=== PATIENT | male | born 1970 | race African-American/Black ===

== ENCOUNTER 2017-07-12 08:15 | Emergency (ER) | payer OTHER ==
[~2017-07-12] VITALS: Ht 185.4 cm; Wt 109.1 kg
[~2017-07-12 08:15] MED LIST: AMLO-512 PO; ASPI-1182 PO; CLON.2 PO; HYDR25TA PO; ISOS30TA6 PO; LISI-662 PO; METO50 PO
[2017-07-12 09:18] LABS: CALCIUM, TOTAL 9.2 mg/dL (8.8-10.5); CREATININE 3.88 mg/dL (0.60-1.30); POTASSIUM 4.4 mmol/L (3.5-5.1)
[2017-07-12 10:10] VITALS: BP 140/99
== END 2017-07-12 10:12 | disposition home or self-care (01) ==
LOC: EMS 08:18
DX: I12.0 Hypertensive chronic kidney disease with stage 5 chronic kidney disease or end stage renal disease (principal); N18.6 End stage renal disease; E78.00 Pure hypercholesterolemia, unspecified; F17.210 Nicotine dependence, cigarettes, uncomplicated; Z99.2 Dependence on renal dialysis; Z86.73 Personal history of transient ischemic attack (TIA), and cerebral infarction without residual deficits; Z79.82 Long term (current) use of aspirin
CPT/HCPCS: 99283

== ENCOUNTER 2017-08-23 06:17 | Inpatient (IN) | payer OTHER ==
[~2017-08-23] VITALS: Ht 182.9 cm; Wt 93.0 kg
[2017-08-23] MEDS ORDERED: PERCT PO (06:26)
[2017-08-23] MEDS ORDERED: LORazepam 1 MG TABLET PO ONE (06:45)
[2017-08-23 07:29] LABS: BASOPHILS # (AUTO) 0.01 K/uL (0.00-0.20); BASOPHILS % (AUTO) 0.2 % (0.0-2.0); EOSINOPHILS # (AUTO) 0.06 K/uL (0.00-0.70); EOSINOPHILS % (AUTO) 0.88 % (1.0-6.0); HEMATOCRIT 35.8 % (41-53); HEMOGLOBIN 11.8 g/dL (13.5-17.5); LYMPHOCYTES # (AUTO) 1.2 K/uL (1.0-4.8); LYMPHOCYTES % (AUTO) 17.8 % (22.0-44.0); MEAN CORPUSCULAR HEMOGLOBIN 29.2 pg (26.0-34.0); MEAN CORPUSCULAR VOLUME 89 fL (80-100); MONOCYTES # (AUTO) 0.4 K/uL (0.1-1.0); MONOCYTES % (AUTO) 5.5 % (2.0-9.0); NEUTROPHILS # (AUTO) 5.2 K/uL (1.8-7.7); NEUTROPHILS % (AUTO) 75.5 % (40.0-70.0); PLATELET COUNT (AUTO) 161 K/uL (150-450); RED BLOOD CELL COUNT(AUTO) 4.04 MIL/uL (4.50-5.90); WHITE BLOOD COUNT (AUTO) 6.9 K/uL (4.5-11.0)
[2017-08-23 07:39] LABS: CREATININE 4.71 mg/dL (0.60-1.30); POTASSIUM 4.3 mmol/L (3.5-5.1); RBC MORPHOLOGY COMMENT ABNORMAL RBC MORPH
[2017-08-23 07:45] LABS: BILIRUBIN,TOTAL 0.5 mg/dL (0.1-1.0); TOTAL PROTEIN, SERUM 7.5 g/dL (6.4-8.2)
[2017-08-23] MEDS ORDERED: ACETAMINOPHEN 325 MG TABLET PO PRN (10:45)
[2017-08-23] MEDS ORDERED: CLON-570 PO (10:45)
[2017-08-23] MEDS ORDERED: BISACODYL 10 MG RECTAL RECTAL SUPPOSITORY PR PRN (10:45)
[2017-08-23 13:05] VITALS: BP 133/102
[2017-08-23 16:14] VITALS: BP 147/101
[2017-08-23 20:27] VITALS: BP 163/95
[2017-08-23] MEDS ORDERED: HEPARIN SODIUM,PORCINE 5,000 UNITS/ML VIAL SQ SCH (21:00)
[2017-08-23] MEDS ORDERED: DOCUSATE SODIUM 100 MG CAPSULE PO SCH (21:00)
[2017-08-23 22:00] VITALS: BP 153/86
[2017-08-23] MEDS ORDERED: CloNIDine HCL 0.1 MG TABLET PO PRN (22:30)
[2017-08-24 00:46] VITALS: BP 154/119
[2017-08-24 02:00] VITALS: BP 139/100
[2017-08-24 05:00] VITALS: BP 163/128
[2017-08-24] MEDS ORDERED: ASPIRIN 81 MG CHEWABLE TABLET PO SCH (09:00)
[2017-08-24] MEDS ORDERED: AmLODIPine BESYLATE 10 MG TABLET PO SCH (09:00)
[2017-08-24] MEDS ORDERED: PANTOPRAZOLE SODIUM 40 MG DR TABLET PO SCH (09:00)
== END 2017-08-24 07:20 | disposition left against medical advice (07) | DRG 760 ==
LOC: EMS 06:18 → 5S 12:50
PROVIDERS: ADMIT Internal Medicine; ATTEND Internal Medicine
DX: F22 Delusional disorders (principal); I12.0 Hypertensive chronic kidney disease with stage 5 chronic kidney disease or end stage renal disease; N18.6 End stage renal disease; E78.00 Pure hypercholesterolemia, unspecified; F17.210 Nicotine dependence, cigarettes, uncomplicated; J44.9 Chronic obstructive pulmonary disease, unspecified; Z99.2 Dependence on renal dialysis; Z91.15 Patient's noncompliance with renal dialysis; Z79.899 Other long term (current) drug therapy; Z86.73 Personal history of transient ischemic attack (TIA), and cerebral infarction without residual deficits; Z79.82 Long term (current) use of aspirin; Z71.6 Tobacco abuse counseling
CPT/HCPCS: 87081; 99285; G0480; J1644

== ENCOUNTER 2017-08-24 09:34 | Inpatient (IN) | payer OTHER ==
[~2017-08-24] VITALS: Ht 185.4 cm; Wt 90.8 kg
[~2017-08-24 09:34] MED LIST changes: +CLON-570 PO; -CLON.2 PO; +PERCT PO
[2017-08-24] MEDS ORDERED: ACETAMINOPHEN 325 MG TABLET PO PRN ×2 (11:00→22:45)
[2017-08-24] MEDS ORDERED: 0.9% SODIUM CHLORIDE 10 ML SYRINGE IVP PRN ×2 (11:00→22:45)
[2017-08-24] MEDS ORDERED: ONDANSETRON HCL 4 MG/2 ML VIAL IVP PRN ×2 (11:00→22:45)
[2017-08-24] MEDS ORDERED: HydrALAZINE HCL 10 MG TABLET PO PRN (12:00)
[2017-08-24] MEDS ORDERED: HEPARIN SODIUM,PORCINE 1,000 UNITS/ML 10 ML VIAL IVP ONE (12:00)
[2017-08-24 12:14] VITALS: BP 166/126
[2017-08-24 12:15] VITALS: BP 176/124
[2017-08-24] MEDS ORDERED: OxyCODONE HCL/ACETAMINOPHEN 5-325 MG TABLET PO PRN (12:15)
[2017-08-24] MEDS ORDERED: CloNIDine HCL 0.1 MG TABLET PO PRN (12:15)
[2017-08-24] MEDS: METOPROLOL TARTRATE 50 MG TABLET PO SCH (12:15)
[2017-08-24] MEDS: HYDROCHLOROTHIAZIDE 25 MG TABLET PO SCH (12:18)
[2017-08-24] MEDS: AmLODIPine BESYLATE 10 MG TABLET PO SCH (12:18)
[2017-08-24] MEDS: ISOSORBIDE MONONITRATE 30 MG ER TABLET PO SCH ×2 (12:19→21:30)
[2017-08-24] MEDS: ASPIRIN 81 MG EC TABLET PO SCH (12:19)
[2017-08-24] MEDS ORDERED: OLANZapine 5 MG RAPDIS TABLET PO PRN (14:15)
[2017-08-24] MEDS ORDERED: LORazepam 2 MG TABLET PO ONE (14:15)
[2017-08-24 14:46] VITALS: BP 153/84
[2017-08-24 15:20] VITALS: BP 123/70
[2017-08-24] MEDS ORDERED: SODIUM CHLORIDE 0.9% 2,000 ML IV ONE (17:41)
[2017-08-24] MEDS ORDERED: HEPARIN SODIUM,PORCINE 1,000 UNITS/ML VIAL IVP ONE ×2 (20:15)
[2017-08-24] MEDS: OLANZapine 5 MG RAPDIS TABLET PO SCH (21:29)
[2017-08-24] MEDS: LORazepam 1 MG TABLET PO PRN (21:29)
[2017-08-24] MEDS ORDERED: MAGNESIUM HYDROXIDE SUSPENSION 30 ML UDCUP PO PRN (22:45)
[2017-08-24 23:30] VITALS: BP 84/58
[2017-08-25 03:30] VITALS: BP 96/60
[2017-08-25 06:52] LABS: BASOPHILS % (AUTO) 0.1 % (0.0-2.0); EOSINOPHILS % (AUTO) 0.1 % (1.0-6.0); HEMATOCRIT 36.8 % (41-53); HEMOGLOBIN 12.3 g/dL (13.5-17.5); LYMPHOCYTES # (AUTO) 1.5 K/uL (1.0-4.8); LYMPHOCYTES % (AUTO) 11.6 % (22.0-44.0); MEAN CORPUSCULAR HEMOGLOBIN 29.7 pg (26.0-34.0); MEAN CORPUSCULAR HGB CONC 33.4 G/dL (31.0-37.0); MEAN CORPUSCULAR VOLUME 89 fL (80-100); MONOCYTES # (AUTO) 0.7 K/uL (0.1-1.0); MONOCYTES % (AUTO) 5.1 % (2.0-9.0); NEUTROPHILS # (AUTO) 10.8 K/uL (1.8-7.7); NEUTROPHILS % (AUTO) 83.1 % (40.0-70.0); PLATELET COUNT (AUTO) 170 K/uL (150-450); RED BLOOD CELL COUNT(AUTO) 4.13 MIL/uL (4.50-5.90); RED CELL DISTRIBUTION WIDTH 16.7 % (11.5-14.5)
[2017-08-25] MEDS ORDERED: SODIUM CHLORIDE 0.9% 1,000 ML IV ONE ×2 (06:52)
[2017-08-25 06:54] LABS: CALCIUM, TOTAL 9.7 mg/dL (8.8-10.5); CREATININE 4.71 mg/dL (0.60-1.30); POTASSIUM 4.5 mmol/L (3.5-5.1)
[2017-08-25] MEDS ORDERED: HEPARIN SODIUM,PORCINE 1,000 UNITS/ML VIAL IVP ONE ×3 (08:45→12:00)
[2017-08-25] MEDS: DOCUSATE SODIUM 100 MG CAPSULE PO SCH ×2 (09:00→19:56)
[2017-08-25] MEDS: PANTOPRAZOLE SODIUM 40 MG/VIAL IVP SCH (09:00)
[2017-08-25] MEDS: LORazepam 1 MG TABLET PO PRN (10:55)
[2017-08-25] MEDS: ASPIRIN 81 MG EC TABLET PO SCH (10:55)
[2017-08-25] MEDS: METOPROLOL TARTRATE 50 MG TABLET PO SCH (10:55)
[2017-08-25] MEDS: HYDROCHLOROTHIAZIDE 25 MG TABLET PO SCH (10:55)
[2017-08-25] MEDS: ISOSORBIDE MONONITRATE 30 MG ER TABLET PO SCH ×2 (10:55→20:02)
[2017-08-25] MEDS: AmLODIPine BESYLATE 10 MG TABLET PO SCH (10:55)
[2017-08-25 11:32] VITALS: BP 102/63
[2017-08-25] MEDS: LISINOPRIL 20 MG TABLET PO SCH (12:00)
[2017-08-25 15:27] VITALS: BP 134/78
[2017-08-25 19:53] VITALS: BP 89/58
[2017-08-25] MEDS: OLANZapine 5 MG RAPDIS TABLET PO SCH (19:59)
[2017-08-25 21:11] VITALS: BP 103/63
[2017-08-25 23:17] VITALS: BP 120/68
[2017-08-26 04:00] VITALS: BP 121/84
[2017-08-26 07:31] VITALS: BP 125/99
[2017-08-26] MEDS: DOCUSATE SODIUM 100 MG CAPSULE PO SCH ×2 (09:02→20:18)
[2017-08-26] MEDS: PANTOPRAZOLE SODIUM 40 MG/VIAL IVP SCH (09:02)
[2017-08-26] MEDS: AmLODIPine BESYLATE 10 MG TABLET PO SCH (09:03)
[2017-08-26] MEDS: ASPIRIN 81 MG EC TABLET PO SCH (09:03)
[2017-08-26] MEDS: METOPROLOL TARTRATE 50 MG TABLET PO SCH (09:03)
[2017-08-26] MEDS: ISOSORBIDE MONONITRATE 30 MG ER TABLET PO SCH ×2 (09:03→20:18)
[2017-08-26] MEDS: HYDROCHLOROTHIAZIDE 25 MG TABLET PO SCH (09:04)
[2017-08-26 11:34] VITALS: BP 107/74
[2017-08-26] MEDS: LISINOPRIL 20 MG TABLET PO SCH (12:39)
[2017-08-26] MEDS: LORazepam 1 MG TABLET PO PRN (12:39)
[2017-08-26 14:59] LABS: ALBUMIN 3.7 g/dL (3.4-5.0); CALCIUM, TOTAL 9.6 mg/dL (8.8-10.5); CREATININE 6.57 mg/dL (0.60-1.30); PHOSPHORUS 4.5 mg/dL (2.5-4.9); POTASSIUM 4.8 mmol/L (3.5-5.1)
[2017-08-26 15:07] VITALS: BP 128/90
[2017-08-26 19:25] VITALS: BP 98/54
[2017-08-26] MEDS: OLANZapine 5 MG RAPDIS TABLET PO SCH (20:18)
[2017-08-26 23:26] VITALS: BP 134/79
[2017-08-27 04:15] VITALS: BP 122/78
[2017-08-27 07:06] VITALS: BP 142/97
[2017-08-27 07:08] LABS: ALBUMIN 3.8 g/dL (3.4-5.0); CALCIUM, TOTAL 9.8 mg/dL (8.8-10.5); CREATININE 7.18 mg/dL (0.60-1.30); POTASSIUM 4.3 mmol/L (3.5-5.1)
[2017-08-27 07:14] LABS: BASOPHILS # (AUTO) 0.08 K/uL (0.00-0.20); BASOPHILS % (AUTO) 1.1 % (0.0-2.0); EOSINOPHILS # (AUTO) 0.14 K/uL (0.00-0.70); EOSINOPHILS % (AUTO) 1.91 % (1.0-6.0); HEMATOCRIT 37.7 % (41-53); HEMOGLOBIN 12.3 g/dL (13.5-17.5); LYMPHOCYTES # (AUTO) 2.8 K/uL (1.0-4.8); LYMPHOCYTES % (AUTO) 38.8 % (22.0-44.0); MEAN CORPUSCULAR HEMOGLOBIN 28.7 pg (26.0-34.0); MEAN CORPUSCULAR HGB CONC 32.6 G/dL (31.0-37.0); MEAN CORPUSCULAR VOLUME 88 fL (80-100); MONOCYTES # (AUTO) 0.6 K/uL (0.1-1.0); NEUTROPHILS # (AUTO) 3.5 K/uL (1.8-7.7); NEUTROPHILS % (AUTO) 49.3 % (40.0-70.0); PLATELET COUNT (AUTO) 146 K/uL (150-450); RED BLOOD CELL COUNT(AUTO) 4.27 MIL/uL (4.50-5.90); WHITE BLOOD COUNT (AUTO) 7.2 K/uL (4.5-11.0)
[2017-08-27] MEDS: ASPIRIN 81 MG EC TABLET PO SCH (08:26)
[2017-08-27] MEDS: AmLODIPine BESYLATE 10 MG TABLET PO SCH (08:26)
[2017-08-27] MEDS: PANTOPRAZOLE SODIUM 40 MG/VIAL IVP SCH (08:27)
[2017-08-27] MEDS: LORazepam 1 MG TABLET PO PRN ×2 (08:27→20:24)
[2017-08-27] MEDS: ISOSORBIDE MONONITRATE 30 MG ER TABLET PO SCH ×2 (09:00→20:20)
[2017-08-27] MEDS: HYDROCHLOROTHIAZIDE 25 MG TABLET PO SCH (09:00)
[2017-08-27] MEDS: DOCUSATE SODIUM 100 MG CAPSULE PO SCH ×2 (09:00→20:20)
[2017-08-27] MEDS: METOPROLOL TARTRATE 50 MG TABLET PO SCH (09:00)
[2017-08-27] MEDS ORDERED: SODIUM CHLORIDE 0.9% 2,000 ML IV ONE (10:38)
[2017-08-27 11:06] VITALS: BP 136/85
[2017-08-27] MEDS: LISINOPRIL 20 MG TABLET PO SCH (12:15)
[2017-08-27 15:33] VITALS: BP 131/89
[2017-08-27 19:13] VITALS: BP 143/92
[2017-08-27] MEDS: OLANZapine 5 MG RAPDIS TABLET PO SCH (20:21)
[2017-08-27 23:00] VITALS: BP 104/55
[2017-08-28 04:33] VITALS: BP 109/83
[2017-08-28 07:02] VITALS: BP 135/90
[2017-08-28] MEDS ORDERED: SODIUM CHLORIDE 0.9% 2,000 ML IV ONE (08:44)
[2017-08-28 10:06] LABS: BASOPHILS % (AUTO) 0.6 % (0.0-2.0); EOSINOPHILS % (AUTO) 2.1 % (1.0-6.0); HEMATOCRIT 36.6 % (41-53); HEMOGLOBIN 12.3 g/dL (13.5-17.5); LYMPHOCYTES # (AUTO) 2.5 K/uL (1.0-4.8); LYMPHOCYTES % (AUTO) 27.8 % (22.0-44.0); MEAN CORPUSCULAR HEMOGLOBIN 29.4 pg (26.0-34.0); MEAN CORPUSCULAR HGB CONC 33.5 G/dL (31.0-37.0); MEAN CORPUSCULAR VOLUME 88 fL (80-100); MONOCYTES # (AUTO) 0.6 K/uL (0.1-1.0); MONOCYTES % (AUTO) 6.6 % (2.0-9.0); NEUTROPHILS # (AUTO) 5.6 K/uL (1.8-7.7); NEUTROPHILS % (AUTO) 62.9 % (40.0-70.0); PLATELET COUNT (AUTO) 186 K/uL (150-450); RED BLOOD CELL COUNT(AUTO) 4.17 MIL/uL (4.50-5.90); RED CELL DISTRIBUTION WIDTH 16.4 % (11.5-14.5); WHITE BLOOD COUNT (AUTO) 8.9 K/uL (4.5-11.0)
[2017-08-28 10:17] LABS: CALCIUM, TOTAL 9.8 mg/dL (8.8-10.5); CREATININE 7.15 mg/dL (0.60-1.30)
[2017-08-28] MEDS: LISINOPRIL 20 MG TABLET PO SCH (10:23)
[2017-08-28] MEDS: PANTOPRAZOLE SODIUM 40 MG/VIAL IVP SCH (10:23)
[2017-08-28] MEDS: HYDROCHLOROTHIAZIDE 25 MG TABLET PO SCH (10:23)
[2017-08-28] MEDS: METOPROLOL TARTRATE 50 MG TABLET PO SCH (10:23)
[2017-08-28] MEDS: AmLODIPine BESYLATE 10 MG TABLET PO SCH (10:23)
[2017-08-28] MEDS: ISOSORBIDE MONONITRATE 30 MG ER TABLET PO SCH ×2 (10:23→20:37)
[2017-08-28] MEDS: DOCUSATE SODIUM 100 MG CAPSULE PO SCH ×2 (10:23→20:38)
[2017-08-28] MEDS: ASPIRIN 81 MG EC TABLET PO SCH (10:23)
[2017-08-28 10:38] LABS: POTASSIUM 4.2 mmol/L (3.5-5.1)
[2017-08-28 11:24] VITALS: BP 101/76
[2017-08-28 15:40] VITALS: BP 114/78
[2017-08-28 19:29] VITALS: BP 127/88
[2017-08-28] MEDS: OLANZapine 5 MG RAPDIS TABLET PO SCH (20:37)
[2017-08-28 23:35] VITALS: BP 123/65
[2017-08-29 04:44] VITALS: BP 118/74
[2017-08-29 08:06] VITALS: BP 126/86
[2017-08-29] MEDS: HYDROCHLOROTHIAZIDE 25 MG TABLET PO SCH (08:22)
[2017-08-29] MEDS: METOPROLOL TARTRATE 50 MG TABLET PO SCH (08:22)
[2017-08-29] MEDS: AmLODIPine BESYLATE 10 MG TABLET PO SCH (08:23)
[2017-08-29] MEDS: ISOSORBIDE MONONITRATE 30 MG ER TABLET PO SCH ×2 (08:23→19:50)
[2017-08-29] MEDS: ASPIRIN 81 MG EC TABLET PO SCH (08:23)
[2017-08-29] MEDS: DOCUSATE SODIUM 100 MG CAPSULE PO SCH ×2 (08:23→19:50)
[2017-08-29 11:37] VITALS: BP 123/67
[2017-08-29] MEDS: LISINOPRIL 20 MG TABLET PO SCH (12:04)
[2017-08-29] MEDS: PANTOPRAZOLE SODIUM 40 MG DR TABLET PO SCH (12:04)
[2017-08-29 15:10] VITALS: BP 145/83
[2017-08-29 15:46] LABS: BASOPHILS # (AUTO) 0.08 K/uL (0.00-0.20); EOSINOPHILS # (AUTO) 0.06 K/uL (0.00-0.70); EOSINOPHILS % (AUTO) 0.78 % (1.0-6.0); HEMATOCRIT 37.2 % (41-53); HEMOGLOBIN 12.1 g/dL (13.5-17.5); LYMPHOCYTES # (AUTO) 2.3 K/uL (1.0-4.8); LYMPHOCYTES % (AUTO) 28.2 % (22.0-44.0); MEAN CORPUSCULAR HEMOGLOBIN 28.8 pg (26.0-34.0); MEAN CORPUSCULAR HGB CONC 32.6 G/dL (31.0-37.0); MEAN CORPUSCULAR VOLUME 88 fL (80-100); MONOCYTES # (AUTO) 0.6 K/uL (0.1-1.0); MONOCYTES % (AUTO) 7.7 % (2.0-9.0); NEUTROPHILS # (AUTO) 5.1 K/uL (1.8-7.7); NEUTROPHILS % (AUTO) 62.2 % (40.0-70.0); PLATELET COUNT (AUTO) 194 K/uL (150-450); RED BLOOD CELL COUNT(AUTO) 4.21 MIL/uL (4.50-5.90); RED CELL DISTRIBUTION WIDTH 16.6 % (11.5-14.5); WHITE BLOOD COUNT (AUTO) 8.1 K/uL (4.5-11.0)
[2017-08-29 15:59] LABS: ALBUMIN 4.1 g/dL (3.4-5.0); CALCIUM, TOTAL 9.8 mg/dL (8.8-10.5); CREATININE 7.13 mg/dL (0.60-1.30); PHOSPHORUS 4.6 mg/dL (2.5-4.9); POTASSIUM 5.2 mmol/L (3.5-5.1)
[2017-08-29 19:36] VITALS: BP 121/81
[2017-08-29] MEDS: OLANZapine 5 MG RAPDIS TABLET PO SCH (19:49)
[2017-08-29 23:09] VITALS: BP 134/79
[2017-08-30 04:56] VITALS: BP 131/88
[2017-08-30 07:15] LABS: HEMATOCRIT 32.7 % (41-53); HEMOGLOBIN 11.1 g/dL (13.5-17.5); LYMPHOCYTES % (AUTO) 34.4 % (22.0-44.0); MEAN CORPUSCULAR HEMOGLOBIN 29.7 pg (26.0-34.0); MEAN CORPUSCULAR HGB CONC 33.8 G/dL (31.0-37.0); MEAN CORPUSCULAR VOLUME 88 fL (80-100); MONOCYTES # (AUTO) 0.5 K/uL (0.1-1.0); MONOCYTES % (AUTO) 8.4 % (2.0-9.0); NEUTROPHILS # (AUTO) 3.1 K/uL (1.8-7.7); NEUTROPHILS % (AUTO) 54.2 % (40.0-70.0); PLATELET COUNT (AUTO) 163 K/uL (150-450); RED BLOOD CELL COUNT(AUTO) 3.73 MIL/uL (4.50-5.90); RED CELL DISTRIBUTION WIDTH 16.6 % (11.5-14.5); WHITE BLOOD COUNT (AUTO) 5.8 K/uL (4.5-11.0)
[2017-08-30 07:21] LABS: PROTHROMBIN TIME 10.5 SEC (9.4-11.6)
[2017-08-30 07:30] VITALS: BP 113/72
[2017-08-30 07:35] LABS: ALBUMIN 3.5 g/dL (3.4-5.0); CALCIUM, TOTAL 9.3 mg/dL (8.8-10.5); PHOSPHORUS 5.3 mg/dL (2.5-4.9); POTASSIUM 4.3 mmol/L (3.5-5.1)
[2017-08-30] MEDS: DOCUSATE SODIUM 100 MG CAPSULE PO SCH ×2 (09:48→20:15)
[2017-08-30] MEDS: AmLODIPine BESYLATE 10 MG TABLET PO SCH (09:48)
[2017-08-30] MEDS: HYDROCHLOROTHIAZIDE 25 MG TABLET PO SCH (09:48)
[2017-08-30] MEDS: PANTOPRAZOLE SODIUM 40 MG DR TABLET PO SCH (09:48)
[2017-08-30] MEDS: ASPIRIN 81 MG EC TABLET PO SCH (09:48)
[2017-08-30] MEDS: ISOSORBIDE MONONITRATE 30 MG ER TABLET PO SCH ×2 (09:48→20:14)
[2017-08-30] MEDS: METOPROLOL TARTRATE 50 MG TABLET PO SCH (09:49)
[2017-08-30] MEDS: LISINOPRIL 20 MG TABLET PO SCH (11:35)
[2017-08-30 12:00] VITALS: BP 113/74
[2017-08-30 19:45] VITALS: BP 133/85
[2017-08-30] MEDS: OLANZapine 10 MG RAPDIS TABLET PO SCH (20:14)
[2017-08-30 23:18] VITALS: BP 143/87
[2017-08-31 07:19] VITALS: BP 131/84
[2017-08-31 08:17] LABS: BASOPHILS % (AUTO) 0.9 % (0.0-2.0); EOSINOPHILS % (AUTO) 1.7 % (1.0-6.0); HEMATOCRIT 32.9 % (41-53); LYMPHOCYTES % (AUTO) 29.5 % (22.0-44.0); MEAN CORPUSCULAR HEMOGLOBIN 29.5 pg (26.0-34.0); MEAN CORPUSCULAR HGB CONC 33.4 G/dL (31.0-37.0); MEAN CORPUSCULAR VOLUME 88 fL (80-100); MONOCYTES # (AUTO) 0.6 K/uL (0.1-1.0); MONOCYTES % (AUTO) 9.2 % (2.0-9.0); NEUTROPHILS % (AUTO) 58.7 % (40.0-70.0); PLATELET COUNT (AUTO) 164 K/uL (150-450); RED BLOOD CELL COUNT(AUTO) 3.72 MIL/uL (4.50-5.90); RED CELL DISTRIBUTION WIDTH 16.6 % (11.5-14.5); WHITE BLOOD COUNT (AUTO) 6.8 K/uL (4.5-11.0)
[2017-08-31] MEDS ORDERED: HEPARIN SODIUM,PORCINE 1,000 UNITS/ML 10 ML VIAL ONE (08:23)
[2017-08-31] MEDS ORDERED: LIDOCAINE HCL/PF 1% 30 ML VIAL ONE (08:23)
[2017-08-31] MEDS ORDERED: HEPARIN SODIUM 1000 UNITS/NS 500 ML ONE (08:23)
[2017-08-31 08:38] LABS: CALCIUM, TOTAL 9.8 mg/dL (8.8-10.5); CREATININE 6.84 mg/dL (0.60-1.30); POTASSIUM 5.2 mmol/L (3.5-5.1)
[2017-08-31 11:43] VITALS: BP 137/86
[2017-08-31] MEDS: AmLODIPine BESYLATE 10 MG TABLET PO SCH (14:19)
[2017-08-31] MEDS: DOCUSATE SODIUM 100 MG CAPSULE PO SCH ×2 (14:20→20:32)
[2017-08-31] MEDS: PANTOPRAZOLE SODIUM 40 MG DR TABLET PO SCH (14:20)
[2017-08-31] MEDS: LISINOPRIL 20 MG TABLET PO SCH (14:20)
[2017-08-31] MEDS: ASPIRIN 81 MG EC TABLET PO SCH (14:20)
[2017-08-31] MEDS: ISOSORBIDE MONONITRATE 30 MG ER TABLET PO SCH ×2 (14:20→20:32)
[2017-08-31] MEDS: HYDROCHLOROTHIAZIDE 25 MG TABLET PO SCH (14:21)
[2017-08-31] MEDS: METOPROLOL TARTRATE 50 MG TABLET PO SCH (14:28)
[2017-08-31 15:42] VITALS: BP 108/77
[2017-08-31 20:06] VITALS: BP 118/58
[2017-08-31] MEDS: OLANZapine 10 MG RAPDIS TABLET PO SCH (20:45)
[2017-08-31 23:21] VITALS: BP 139/83
[2017-09-01 04:21] VITALS: BP 123/81
[2017-09-01 07:34] VITALS: BP 139/91
[2017-09-01] MEDS: ISOSORBIDE MONONITRATE 30 MG ER TABLET PO SCH ×2 (09:00→20:15)
[2017-09-01] MEDS: AmLODIPine BESYLATE 10 MG TABLET PO SCH (09:00)
[2017-09-01] MEDS: METOPROLOL TARTRATE 50 MG TABLET PO SCH (09:00)
[2017-09-01] MEDS: PANTOPRAZOLE SODIUM 40 MG DR TABLET PO SCH (09:00)
[2017-09-01] MEDS: ASPIRIN 81 MG EC TABLET PO SCH (09:00)
[2017-09-01] MEDS: HYDROCHLOROTHIAZIDE 25 MG TABLET PO SCH (09:00)
[2017-09-01] MEDS: DOCUSATE SODIUM 100 MG CAPSULE PO SCH ×2 (09:00→21:00)
[2017-09-01 09:09] LABS: BASOPHILS % (AUTO) 0.3 % (0.0-2.0); EOSINOPHILS % (AUTO) 1.7 % (1.0-6.0); HEMATOCRIT 33.4 % (41-53); HEMOGLOBIN 11.4 g/dL (13.5-17.5); LYMPHOCYTES # (AUTO) 1.7 K/uL (1.0-4.8); LYMPHOCYTES % (AUTO) 25.1 % (22.0-44.0); MEAN CORPUSCULAR HEMOGLOBIN 29.4 pg (26.0-34.0); MEAN CORPUSCULAR HGB CONC 33.9 G/dL (31.0-37.0); MEAN CORPUSCULAR VOLUME 87 fL (80-100); MONOCYTES # (AUTO) 0.5 K/uL (0.1-1.0); MONOCYTES % (AUTO) 7.3 % (2.0-9.0); NEUTROPHILS # (AUTO) 4.4 K/uL (1.8-7.7); NEUTROPHILS % (AUTO) 65.6 % (40.0-70.0); PLATELET COUNT (AUTO) 177 K/uL (150-450); RED BLOOD CELL COUNT(AUTO) 3.87 MIL/uL (4.50-5.90); RED CELL DISTRIBUTION WIDTH 16.1 % (11.5-14.5); WHITE BLOOD COUNT (AUTO) 6.7 K/uL (4.5-11.0)
[2017-09-01 09:34] LABS: CALCIUM, TOTAL 9.4 mg/dL (8.8-10.5); CREATININE 5.8 mg/dL (0.60-1.30); POTASSIUM 4.9 mmol/L (3.5-5.1)
[2017-09-01 11:36] VITALS: BP 125/81
[2017-09-01] MEDS: LISINOPRIL 20 MG TABLET PO SCH (12:00)
[2017-09-01] MEDS ORDERED: LIDOCAINE HCL/PF 1% 30 ML VIAL ONE (14:01)
[2017-09-01] MEDS ORDERED: FentaNYL CITRATE-PF 100 MCG/2 ML VIAL ONE (14:01)
[2017-09-01] MEDS ORDERED: HEPARIN SODIUM 1000 UNITS/NS 500 ML ONE (14:01)
[2017-09-01] MEDS ORDERED: HEPARIN SODIUM,PORCINE 1,000 UNITS/ML 10 ML VIAL ONE (14:01)
[2017-09-01] MEDS ORDERED: MIDAZOLAM HCL 2 MG/2 ML VIAL ONE (14:01)
[2017-09-01] MEDS ORDERED: CeFAZolin 1 GM/DEXTROSE 50 ML IV ONE ×2 (14:07→14:35)
[2017-09-01] MEDS ORDERED: MIDAZOLAM HCL 2 MG/2 ML VIAL IVP ONE (14:45)
[2017-09-01] MEDS ORDERED: FentaNYL CITRATE-PF 100 MCG/2 ML VIAL IVP ONE (14:46)
[2017-09-01 15:34] VITALS: BP 123/84
[2017-09-01 19:57] VITALS: BP 141/89
[2017-09-01] MEDS: OLANZapine 10 MG RAPDIS TABLET PO SCH (20:16)
[2017-09-01 23:37] VITALS: BP 130/78
[2017-09-02 04:52] VITALS: BP 131/80
[2017-09-02 07:15] VITALS: BP 147/76
[2017-09-02] MEDS ORDERED: SODIUM CHLORIDE 0.9% 2,000 ML IV ONE (08:17)
[2017-09-02] MEDS: AmLODIPine BESYLATE 10 MG TABLET PO SCH (09:00)
[2017-09-02] MEDS: METOPROLOL TARTRATE 50 MG TABLET PO SCH (09:00)
[2017-09-02] MEDS: DOCUSATE SODIUM 100 MG CAPSULE PO SCH ×2 (09:00→21:05)
[2017-09-02] MEDS ORDERED: HEPARIN SODIUM,PORCINE 1,000 UNITS/ML VIAL IVP ONE ×3 (10:00→22:03)
[2017-09-02] MEDS ORDERED: MANNITOL 25%-12.5 GM/50 ML VIAL IVP PRN (10:00)
[2017-09-02] MEDS: LISINOPRIL 20 MG TABLET PO SCH (13:39)
[2017-09-02] MEDS: ISOSORBIDE MONONITRATE 30 MG ER TABLET PO SCH ×2 (13:39→21:05)
[2017-09-02] MEDS: ASPIRIN 81 MG EC TABLET PO SCH (13:39)
[2017-09-02] MEDS: HYDROCHLOROTHIAZIDE 25 MG TABLET PO SCH (13:40)
[2017-09-02] MEDS: PANTOPRAZOLE SODIUM 40 MG DR TABLET PO SCH (13:40)
[2017-09-02 15:56] VITALS: BP 91/64
[2017-09-02 20:24] VITALS: BP 93/58
[2017-09-02] MEDS: OLANZapine 10 MG RAPDIS TABLET PO SCH (21:05)
[2017-09-02 23:41] VITALS: BP 122/64
[2017-09-03 04:37] VITALS: BP 104/65
[2017-09-03 08:10] VITALS: BP 94/57
[2017-09-03] MEDS: ISOSORBIDE MONONITRATE 30 MG ER TABLET PO SCH ×2 (08:19→20:07)
[2017-09-03] MEDS: ASPIRIN 81 MG EC TABLET PO SCH (08:19)
[2017-09-03] MEDS: PANTOPRAZOLE SODIUM 40 MG DR TABLET PO SCH (08:19)
[2017-09-03] MEDS: DOCUSATE SODIUM 100 MG CAPSULE PO SCH ×2 (08:22→20:07)
[2017-09-03] MEDS: HYDROCHLOROTHIAZIDE 25 MG TABLET PO SCH (09:00)
[2017-09-03] MEDS: AmLODIPine BESYLATE 10 MG TABLET PO SCH (09:00)
[2017-09-03] MEDS: METOPROLOL TARTRATE 50 MG TABLET PO SCH (09:00)
[2017-09-03 11:51] VITALS: BP 89/55
[2017-09-03] MEDS: LISINOPRIL 20 MG TABLET PO SCH (12:00)
[2017-09-03 15:50] VITALS: BP 141/53
[2017-09-03 19:15] VITALS: BP 96/50
[2017-09-03] MEDS: OLANZapine 10 MG RAPDIS TABLET PO SCH (20:08)
[2017-09-03 23:33] VITALS: BP 126/82
[2017-09-04 05:10] VITALS: BP 112/65
[2017-09-04 06:30] LABS: BASOPHILS % (AUTO) 0.5 % (0.0-2.0); EOSINOPHILS % (AUTO) 1.9 % (1.0-6.0); HEMATOCRIT 36.3 % (41-53); HEMOGLOBIN 12.3 g/dL (13.5-17.5); LYMPHOCYTES # (AUTO) 3.2 K/uL (1.0-4.8); LYMPHOCYTES % (AUTO) 30.8 % (22.0-44.0); MEAN CORPUSCULAR HEMOGLOBIN 29.3 pg (26.0-34.0); MEAN CORPUSCULAR HGB CONC 33.8 G/dL (31.0-37.0); MEAN CORPUSCULAR VOLUME 87 fL (80-100); MONOCYTES # (AUTO) 0.9 K/uL (0.1-1.0); MONOCYTES % (AUTO) 8.3 % (2.0-9.0); NEUTROPHILS % (AUTO) 58.5 % (40.0-70.0); PLATELET COUNT (AUTO) 190 K/uL (150-450); RED BLOOD CELL COUNT(AUTO) 4.19 MIL/uL (4.50-5.90); RED CELL DISTRIBUTION WIDTH 16.5 % (11.5-14.5); WHITE BLOOD COUNT (AUTO) 10.3 K/uL (4.5-11.0)
[2017-09-04 07:20] LABS: ALBUMIN 3.9 g/dL (3.4-5.0); CALCIUM, TOTAL 9.7 mg/dL (8.8-10.5); CREATININE 7.18 mg/dL (0.60-1.30); PHOSPHORUS 5.6 mg/dL (2.5-4.9); POTASSIUM 3.9 mmol/L (3.5-5.1)
== END 2017-09-04 07:45 | disposition left against medical advice (07) | DRG 470 ==
LOC: EMS 09:35 → 6N 11:10
PROVIDERS: ADMIT Internal Medicine; ATTEND Internal Medicine
PROC: 5A1D70Z Performance of Urinary Filtration, Intermittent, Less than 6 Hours Per Day (ICD-10-PCS; principal; 2017-08-24)
PROC: 5A1D70Z Performance of Urinary Filtration, Intermittent, Less than 6 Hours Per Day (ICD-10-PCS; 2017-08-25)
PROC: 02H633Z Insertion of Infusion Device into Right Atrium, Percutaneous Approach (ICD-10-PCS; 2017-09-01)
PROC: B2141ZZ Fluoroscopy of Right Heart using Low Osmolar Contrast (ICD-10-PCS; 2017-09-01)
PROC: 5A1D70Z Performance of Urinary Filtration, Intermittent, Less than 6 Hours Per Day (ICD-10-PCS; 2017-09-02)
DX: I12.0 Hypertensive chronic kidney disease with stage 5 chronic kidney disease or end stage renal disease (principal); N18.6 End stage renal disease; F20.0 Paranoid schizophrenia; J44.9 Chronic obstructive pulmonary disease, unspecified; E78.5 Hyperlipidemia, unspecified; F17.210 Nicotine dependence, cigarettes, uncomplicated; Z53.21 Procedure and treatment not carried out due to patient leaving prior to being seen by health care provider; Z86.73 Personal history of transient ischemic attack (TIA), and cerebral infarction without residual deficits; Z91.14 Patient's other noncompliance with medication regimen; Z99.2 Dependence on renal dialysis
CPT/HCPCS: 36245; 36561; 76937; 80307; 87081; 87340; 90935; 99285; C9113; J0690; J1644; J2250; J2405; J3010; J3490; J7030